=== PATIENT | female | born 1950 | race Caucasian/White ===

== ENCOUNTER 2017-03-13 10:52 | Inpatient (IN) | payer OTHER ==
[2017-03-13 12:29] VITALS: BMI 24.8
--- NOTE | 2017-03-13 13:00 | HP ---
Admission ROS [facility] - [facility] Chief Complaint: i want to go to rehab Allergies/Adverse Reactions: Allergies Allergy/AdvReac Type Severity Reaction Status Date / Time Penicillins Allergy Severe Hives Verified 03/13/17 12:47 History of Present Illness: 67 years old female with long history of heroin dependence has gerd history of gi ulcer depression and miethadone maintenance 35 mg po daily is admitted to rehab Exam Limitations: No Limitations - Ebola screening Have you traveled outside of the country in the last 21 days: No (N) Have you had contact with anyone from an Ebola affected area: No Have you been sick,other than usual withdrawal symptoms: No Do you have a fever: No - Review of Systems Constitutional: Weight Stable EENT: reports: Blurred Vision (eye glasses), Dental Problems (upper and lower denture) Respiratory: reports: No Symptoms reported Cardiac: reports: No Symptoms Reported GI: reports: Indigestion : reports: No Symptoms Reported Musculoskeletal: reports: No Symptoms Reported Integumentary: reports: No Symptoms Reported Neuro: reports: No Symptoms reported Endocrine: reports: No Symptoms Reported Hematology: reports: No Symptoms Reported Psychiatric: reports: Judgement Intact, Orientated x3, Depressed Other Systems: Reviewed and Negative Patient History - Patient Medical History Hx Anemia: No Hx Asthma: No Hx Chronic Obstructive Pulmonary Disease (COPD): No Hx Cancer: No Hx Cardiac Disorders: No Hx Congestive Heart Failure: No Hx Hypertension: No Hx Hypercholesterolemia: No Hx Pacemaker: No HX Cerebrovascular Accident: No Hx Seizures: No Hx Dementia: No Hx Diabetes: No Hx Gastrointestinal Disorders: No Hx Liver Disease: No Hx Genitourinary Disorders: No Hx Sexually Transmitted Disorders: No Hx Renal Disease (ESRD): No Hx Thyroid Disease: No Hx Human Immunodeficiency Virus (HIV): No Hx Hepatitis C: Yes Hx Depression: Yes Hx Suicide Attempt: No Hx Bipolar Disorder: No Hx Schizophrenia: No - Patient Surgical History Past Surgical History: Yes Hx Neurologic Surgery: No Hx Cataract Extraction: No Hx Cardiac Surgery: No Hx Lung Surgery: No Hx Breast Surgery: No Hx Breast Biopsy: No Hx Abdominal Surgery: Yes (gastric bypass 1991) Hx Appendectomy: No Hx Cholecystectomy: No Hx Genitourinary Surgery: No Hx Section: No Hx Orthopedic Surgery: Yes (right [id number]) Hx Hysterectomy: No Other Surgical History: carpal tunner both wrists 2001 Anesthesia Reaction: No - PPD History Previous Implant?: Yes Documented Results: Negative w/o proof Implanted On Prior R Admission?: No PPD to be Administered?: Yes - Reproductive History Patient is a Female of Child Bearing Age (11 -55 yrs old): No Last Menstrual Period: 03/13/01 Patient : No - Smoking Cessation Smoking history: Never smoked Have you smoked in the past 12 months: No Hx Chewing Tobacco Use: No Initiated information on smoking cessation: No - Substance & Tx. History Hx Alcohol Use: No Hx Substance Use: Yes Substance Use Type: Heroin Hx Substance Use Treatment: Yes ([facility]) - Substances Abused Heroin Route: Inhalation Frequency: Daily Amount used: 5 bags Age of first use: 19 Date of Last Use: 03/01/17 Family Disease History - Family Disease History Family Disease History: CA: Mother (), Respiratory: Father (), Brother, Other: Father, Mother Admission Physical Exam [facility] - Vital Signs Vital Signs: Vital Signs - 24 hr 03/13/17 12:26 Temperature 97.1 F L Pulse Rate 56 L Respiratory 20 Rate Blood Pressure 160/79 - Physical General Appearance: Yes: No Apparent Distress, Appropriately Dressed, Thin HEENTM: Yes: Hearing grossly Normal, Normal ENT Inspection, Normocephalic, Normal Voice Respiratory: Yes: Chest Non-Tender, Lungs Clear, Normal Breath Sounds, No Respiratory Distress, No Accessory Muscle Use Neck: Yes: Supple, Trachea in good position Breast: Yes: Breasts Symetrical Cardiology: Yes: Regular Rhythm, S1, S2, Bradycardia Abdominal: Yes: Normal Bowel Sounds, Non Tender, Soft, Surgical Scar Genitourinary: Yes: Within Normal Limits Back: Yes: Normal Inspection Musculoskeletal: Yes: full range of Motion, Gait Steady Extremities: Yes: Normal Inspection, Normal Range of Motion, Non-Tender Neurological: Yes: Fully Oriented, Alert, Motor Strength 5/5, Normal Response, Depressed Affect Integumentary: Yes: Warm Lymphatic: Yes: Within Normal Limits - Diagnostic (1) Uncomplicated opioid dependence Current Visit: Yes Status: Acute (2) Methadone maintenance therapy patient Current Visit: Yes Status: Chronic Comment: 35 mg verification pending (3) GERD (gastroesophageal reflux disease) Current Visit: Yes Status: Chronic Qualifiers: Esophagitis presence: without esophagitis Qualified Code(s): K21.9 - Gastro -esophageal reflux disease without esophagitis (4) History of gastrointestinal ulcer Current Visit: Yes Status: Resolved (5) Hepatitis C Current Visit: Yes Status: Resolved Qualifiers: Viral hepatitis chronicity: unspecified Hepatic coma status: without hepatic coma Qualified Code(s): B19.20 - Unspecified viral hepatitis C without hepatic coma (6) Depression (emotion) Current Visit: Yes Status: Suspected Qualifiers: Depression Type: dysthymia Qualified Code(s): F34.1 - Dysthymic disorder Cleared for Admission [facility] - Detox or Rehab [facility] Level of Care: Observation Bed Detox Regimen/Protocol: Not Applicable Claeared for Rehab Admission: Yes [facility] Breath Alcohol Content Breath Alcohol Content: 0 Urine Pregancy Test - Result Urine Test Results: Negative- NO Line Present Urine Drug Screen - Results Drug Screen Negative: No Urine Drug Screen Results: MTD-Methadone Inpatient Rehab Admission - Initial Determination Are CD services needed?: Yes Free of communicable disease: Yes Not in need of hospitalization: Yes - Rehab Admission Criteria Previous failed treatment: Yes Poor recovery environment: Yes Comorbidities: Yes Lacks judgement: No Patient is meeting Inpatient Rehab admission criteria:: Yes
[2017-03-13] MEDS ORDERED: MAG HYDROX/AL HYDROX/SIMETH 30 ML UNIT-DOSE CUP PO PRN (13:08)
[2017-03-13] MEDS ORDERED: MENTHOL/PHENOL 1 EACH UD MM PRN (13:08)
[2017-03-13] MEDS ORDERED: MAGNESIUM CITRATE 300 ML BOTTLE PO PRN (13:08)
[2017-03-13] MEDS ORDERED: LOPERAMIDE HCL 2 MG CAPSULE PO PRN (13:08)
[2017-03-13] MEDS ORDERED: P-EPHED 60MG/TRIPROLIDI 2.5MG TABLET PO PRN (13:08)
[2017-03-13] MEDS ORDERED: guaiFENesin/D-METHORPHAN HB 10 ML UNIT-DOSE CUPS PO PRN (13:08)
[2017-03-13] MEDS ORDERED: METHOCARBAMOL 500 MG TABLET PO PRN (13:14)
[2017-03-13] MEDS ORDERED: NAPROXEN 500 MG TABLET (FP) PO PRN (13:15)
--- NOTE | 2017-03-13 15:51 | HP ---
Psychiatrist Admission - Data Date of interview: 03/13/17 Admission source: Court order Identifying data: This is the first admission to [address] [place] [address] rehabilitation [facility] for this 67 yars old female cassy adair 2 grown children,resides with ,supported by [employer]. Medical History: Significant for Hep C,H/O gastric bypass surgery. Psychiatric History: Patient was seen by psychiatrist couple of years ago at the [facility] to address her drug issues,depressed mood, anxiety episodes,mostly related to her heroin use and consequences of her drug habbits.She was placed on Paxil 10 mg po daily.No current psychiatric follow up.Patient obtains Paxil from her Family Physical/Sexual Abuse/Trauma History: denies Vital Signs: Vital Signs - 24 hr 03/13/17 12:26 Temperature 97.1 F L Pulse Rate 56 L Respiratory 20 Rate Blood Pressure 160/79 Allergies/Adverse Reactions: Allergies Allergy/AdvReac Type Severity Reaction Status Date / Time Penicillins Allergy Severe Hives Verified 03/13/17 12:47 Date of last physical exam: 03/13/17 Concur with the findings of this exam: Yes - Substance Abuse/Tx History Hx Alcohol Use: Yes (socially) Hx Substance Use: Yes (reports sniffing heroin since 19 yo ,5 bags daily) Substance Use Type: Heroin Hx Substance Use Treatment: Yes Mental Status Exam - Mental Status Exam Alert and Oriented to: Time, Place, Person Cognitive Function: Grossly Intact Patient Appearance: Well Groomed Mood: Anxious Affect: Labile Patient Behavior: Cooperative Speech Pattern: Clear Voice Loudness: Normal Thought Process: Goal Oriented Thought Disorder: Not Present Hallucinations: Denies Suicidal Ideation: Denies Homicidal Ideation: Denies Insight/Judgement: Fair Sleep: Fair Appetite: Fair Muscle strength/Tone: Normal Gait/Station: Normal Psychiatric Findings - Problem List ([place] 1, 2,3) (1) Gastric bypass status for obesity Current Visit: Yes Status: Chronic (2) GERD (gastroesophageal reflux disease) Current Visit: Yes Status: Chronic Qualifiers: Esophagitis presence: without esophagitis Qualified Code(s): K21.9 - Gastro -esophageal reflux disease without esophagitis (3) Methadone maintenance therapy patient Current Visit: Yes Status: Chronic Comment: 35 mg verification pending (4) Hepatitis C Current Visit: Yes Status: Chronic Qualifiers: Viral hepatitis chronicity: unspecified Hepatic coma status: without hepatic coma Qualified Code(s): B19.20 - Unspecified viral hepatitis C without hepatic coma (5) History of gastrointestinal ulcer Current Visit: Yes Status: Resolved (6) Opioid dependence Current Visit: Yes Status: Chronic (7) Substance induced mood disorder Current Visit: Yes Status: Chronic
[2017-03-13 17:14] LABS: HEMATOCRIT 35.8 % (32.4-45.2); HEMOGLOBIN 11.1 GM/dL (10.7-15.3); MCH 24.5 pg (25.7-33.7); MEAN CELL VOLUME 79.1 fl (80-96); MEAN PLT VOLUME 10.7 fl (7.5-11.1); PLATELET COUNT 227 K/MM3 (134-434); RBC 4.53 M/mm3 (3.60-5.2); RDW 17.4 % (11.6-15.6); WHITE BLOOD COUNT 6.7 K/mm3 (4.0-10.0)
[2017-03-13 17:53] LABS: ALBUMIN 3.7 g/dl (3.4-5.0); ANION GAP 4 (8-16); BLOOD UREA NITROGEN 12 mg/dL (7-18); CALCIUM 8.8 mg/dL (8.5-10.1); CHLORIDE 101 mmol/L (98-107); CO2 34 mmol/L (21-32); CREATININE 0.9 mg/dL (0.55-1.02); GLUCOSE,RANDOM 95 mg/dL (74-106); POTASSIUM 4.3 mmol/L (3.5-5.1); SGOT/AST 17 U/L (15-37); SGPT/ALT 14 U/L (12-78); SODIUM 139 mmol/L (136-145)
[2017-03-13 17:55] LABS: ALK PHOS 109 U/L (45-117); BILIRUBIN,TOTAL 0.7 mg/dL (0.2-1.0); TOT PROT 7.4 g/dl (6.4-8.2)
[2017-03-13] MEDS: MAGNESIUM HYDROX 2400MG/30ML ORAL SUSPENSION 30 ML CUP PO PRN (18:55)
[2017-03-13] MEDS: THIAMINE HCL 100 MG TABLET (FP) PO SCH (21:24)
[2017-03-13] MEDS: RANITIDINE HCL 150 MG TABLET (FP) PO SCH (21:25)
[2017-03-13] MEDS: PARoxetine HCL 10 MG TABLET (FP) PO SCH (21:25)
[2017-03-13 23:42] LABS: URINE APPEARANCE CLEAR; URINE BILIRUBIN NEGATIVE (NEGATIVE); URINE BLOOD 1+ (NEGATIVE); URINE COLOR YELLOW; URINE GLUCOSE (UA) NEGATIVE (NEGATIVE); URINE KETONE NEGATIVE (NEGATIVE); URINE LEUK ESTERASE TRACE (NEGATIVE); URINE NITRITE NEGATIVE (NEGATIVE); URINE PROTEIN NEGATIVE (NEGATIVE); URINE UROBILINOGEN NEGATIVE mg/dL (0.2-1.0)
[2017-03-13 23:46] LABS: EPI CELLS FEW /HPF (FEW); URINE BACTERIA RARE /hpf (NONE SEEN); URINE MUCUS RARE
[2017-03-14] MEDS: RANITIDINE HCL 150 MG TABLET (FP) PO SCH ×2 (10:01→21:28)
[2017-03-14] MEDS: PRENATAL VITAMINS W/ FOLIC ACID TABLET (FP) PO SCH (10:01)
[2017-03-14] MEDS: MAGNESIUM HYDROX 2400MG/30ML ORAL SUSPENSION 30 ML CUP PO PRN (10:02)
[2017-03-14] MEDS ORDERED: METHADONE HCL 40 MG DISPERSABLE TABLET PO SCH (10:45)
[2017-03-14] MEDS ORDERED: METHADONE HCL 10 MG TABLET ONE (10:58)
[2017-03-14] MEDS ORDERED: METHADONE HCL 5 MG TABLET ONE (10:59)
[2017-03-14] MEDS: METHADONE 30 MG, METHADONE 5 MG PO SCH (11:00)
--- NOTE | 2017-03-14 11:05 | EKG ---
Test Reason : Blood Pressure : / mmHG Vent. Rate : 055 BPM Atrial Rate : 055 BPM P-R Int : 118 ms QRS Dur : 082 ms QT Int : 406 ms P-R-T Axes : 058 050 048 degrees QTc Int : 388 ms SINUS BRADYCARDIA OTHERWISE NORMAL ECG NO PREVIOUS ECGS AVAILABLE Confirmed by LULY WATTS MD ([id number]) on 03/14/2017 11:05:21 AM Referred By: Confirmed By:LULY WATTS MD
--- NOTE | 2017-03-14 12:43 | PN ---
[facility] Progress Note (SOAP) Subjective: Mid-epigastric pain and constipation. Pain has improved since yesterday. Difficulty moving bowels, attributes constipation to Methadone, Last BM today with pain improvement Objective: 03/14/17 12:45 AOx3, ambulating, no distress, no respiratory abnormality, BS x 4, non-tender , no distension 03/14/17 17:12 Assessment: 03/14/17 12:46 Constipation GERD 03/14/17 17:43 Plan: Increase fluids Patient advise to not skip meals Increase fiber Colace 100mg BID Continue Ranitidine
[2017-03-14] MEDS: PARoxetine HCL 10 MG TABLET (FP) PO SCH (21:28)
[2017-03-14] MEDS: THIAMINE HCL 100 MG TABLET (FP) PO SCH (21:28)
[2017-03-15] MEDS ORDERED: METHADONE HCL 5 MG TABLET ONE (03:59)
[2017-03-15] MEDS ORDERED: METHADONE HCL 10 MG TABLET ONE (03:59)
[2017-03-15] MEDS: METHADONE 30 MG, METHADONE 5 MG PO SCH (06:04)
[2017-03-15] MEDS: PRENATAL VITAMINS W/ FOLIC ACID TABLET (FP) PO SCH (09:50)
[2017-03-15] MEDS: RANITIDINE HCL 150 MG TABLET (FP) PO SCH ×2 (09:50→21:23)
[2017-03-15] MEDS: PARoxetine HCL 10 MG TABLET (FP) PO SCH (21:23)
[2017-03-15] MEDS: THIAMINE HCL 100 MG TABLET (FP) PO SCH (21:23)
[2017-03-16] MEDS ORDERED: METHADONE HCL 10 MG TABLET ONE (04:02)
[2017-03-16] MEDS ORDERED: METHADONE HCL 5 MG TABLET ONE (04:03)
[2017-03-16] MEDS: METHADONE 30 MG, METHADONE 5 MG PO SCH (05:52)
[2017-03-16] MEDS: RANITIDINE HCL 150 MG TABLET (FP) PO SCH ×2 (09:56→21:34)
[2017-03-16] MEDS: PRENATAL VITAMINS W/ FOLIC ACID TABLET (FP) PO SCH (09:56)
[2017-03-16] MEDS: MAGNESIUM HYDROX 2400MG/30ML ORAL SUSPENSION 30 ML CUP PO PRN (09:57)
[2017-03-16] MEDS: DOCUSATE SODIUM 100 MG CAPSULE (FP) PO PRN (21:34)
[2017-03-16] MEDS: THIAMINE HCL 100 MG TABLET (FP) PO SCH (21:34)
[2017-03-16] MEDS: PARoxetine HCL 10 MG TABLET (FP) PO SCH (21:35)
[2017-03-17] MEDS ORDERED: METHADONE HCL 10 MG TABLET ONE (04:04)
[2017-03-17] MEDS ORDERED: METHADONE HCL 5 MG TABLET ONE (04:04)
[2017-03-17] MEDS: METHADONE 30 MG, METHADONE 5 MG PO SCH (06:06)
[2017-03-17] MEDS: PRENATAL VITAMINS W/ FOLIC ACID TABLET (FP) PO SCH (09:56)
[2017-03-17] MEDS: RANITIDINE HCL 150 MG TABLET (FP) PO SCH ×2 (09:56→21:15)
[2017-03-17] MEDS: DOCUSATE SODIUM 100 MG CAPSULE (FP) PO PRN ×2 (09:57→21:16)
[2017-03-17] MEDS: PARoxetine HCL 10 MG TABLET (FP) PO SCH (21:15)
[2017-03-17] MEDS: THIAMINE HCL 100 MG TABLET (FP) PO SCH (21:15)
[2017-03-18] MEDS ORDERED: METHADONE HCL 10 MG TABLET ONE (03:22)
[2017-03-18] MEDS ORDERED: METHADONE HCL 5 MG TABLET ONE (03:22)
[2017-03-18] MEDS: METHADONE 30 MG, METHADONE 5 MG PO SCH (06:46)
[2017-03-18] MEDS: RANITIDINE HCL 150 MG TABLET (FP) PO SCH ×2 (09:44→21:42)
[2017-03-18] MEDS: PRENATAL VITAMINS W/ FOLIC ACID TABLET (FP) PO SCH (09:44)
[2017-03-18] MEDS: DOCUSATE SODIUM 100 MG CAPSULE (FP) PO PRN ×2 (09:45→21:42)
[2017-03-18] MEDS ORDERED: COLLOIDAL OATMEAL 1 BAR EACH TP PRN (16:09)
--- NOTE | 2017-03-18 16:10 | PN ---
[facility] Progress Note Note: p/t c/o dry skin and itching to legs; aveeno soap and eucerin oint ordered.
[2017-03-18] MEDS: THIAMINE HCL 100 MG TABLET (FP) PO SCH (21:42)
[2017-03-18] MEDS: MINERAL OIL/PETROLAT/WATER TOPICAL CREAM 454 GM JAR TP PRN (21:42)
[2017-03-18] MEDS: PARoxetine HCL 10 MG TABLET (FP) PO SCH (21:44)
[2017-03-19] MEDS ORDERED: METHADONE HCL 5 MG TABLET ONE (03:12)
[2017-03-19] MEDS ORDERED: METHADONE HCL 10 MG TABLET ONE (03:12)
[2017-03-19] MEDS: METHADONE 30 MG, METHADONE 5 MG PO SCH (06:23)
[2017-03-19] MEDS: RANITIDINE HCL 150 MG TABLET (FP) PO SCH ×2 (09:58→21:33)
[2017-03-19] MEDS: PRENATAL VITAMINS W/ FOLIC ACID TABLET (FP) PO SCH (09:58)
[2017-03-19] MEDS: DOCUSATE SODIUM 100 MG CAPSULE (FP) PO PRN ×2 (09:59→21:35)
[2017-03-19] MEDS: THIAMINE HCL 100 MG TABLET (FP) PO SCH (21:33)
[2017-03-19] MEDS: PARoxetine HCL 10 MG TABLET (FP) PO SCH (21:33)
[2017-03-19] MEDS: MINERAL OIL/PETROLAT/WATER TOPICAL CREAM 454 GM JAR TP PRN (21:35)
[2017-03-20] MEDS ORDERED: METHADONE HCL 10 MG TABLET ONE (04:05)
[2017-03-20] MEDS ORDERED: METHADONE HCL 5 MG TABLET ONE (04:05)
[2017-03-20] MEDS: METHADONE 30 MG, METHADONE 5 MG PO SCH (06:11)
[2017-03-20] MEDS: PRENATAL VITAMINS W/ FOLIC ACID TABLET (FP) PO SCH (09:38)
[2017-03-20] MEDS: RANITIDINE HCL 150 MG TABLET (FP) PO SCH ×2 (09:38→21:31)
[2017-03-20] MEDS: DOCUSATE SODIUM 100 MG CAPSULE (FP) PO PRN ×2 (09:39→21:30)
[2017-03-20] MEDS: THIAMINE HCL 100 MG TABLET (FP) PO SCH (21:29)
[2017-03-20] MEDS: PARoxetine HCL 10 MG TABLET (FP) PO SCH (21:31)
[2017-03-20] MEDS: MINERAL OIL/PETROLAT/WATER TOPICAL CREAM 454 GM JAR TP PRN (21:31)
[2017-03-21] MEDS ORDERED: METHADONE HCL 5 MG TABLET ONE (04:13)
[2017-03-21] MEDS ORDERED: METHADONE HCL 10 MG TABLET ONE (04:13)
[2017-03-21] MEDS: METHADONE 30 MG, METHADONE 5 MG PO SCH (06:28)
[2017-03-21] MEDS: RANITIDINE HCL 150 MG TABLET (FP) PO SCH ×2 (09:47→21:17)
[2017-03-21] MEDS: PRENATAL VITAMINS W/ FOLIC ACID TABLET (FP) PO SCH (09:47)
[2017-03-21] MEDS: DOCUSATE SODIUM 100 MG CAPSULE (FP) PO PRN ×2 (09:48→21:18)
[2017-03-21] MEDS: MINERAL OIL/PETROLAT/WATER TOPICAL CREAM 454 GM JAR TP PRN (09:50)
[2017-03-21] MEDS: PARoxetine HCL 10 MG TABLET (FP) PO SCH (21:17)
[2017-03-21] MEDS: THIAMINE HCL 100 MG TABLET (FP) PO SCH (21:17)
[2017-03-22] MEDS ORDERED: METHADONE HCL 5 MG TABLET ONE (04:06)
[2017-03-22] MEDS ORDERED: METHADONE HCL 10 MG TABLET ONE (04:06)
[2017-03-22] MEDS: METHADONE 30 MG, METHADONE 5 MG PO SCH (06:14)
[2017-03-22] MEDS: DOCUSATE SODIUM 100 MG CAPSULE (FP) PO PRN ×2 (10:07→21:23)
[2017-03-22] MEDS: PRENATAL VITAMINS W/ FOLIC ACID TABLET (FP) PO SCH (10:07)
[2017-03-22] MEDS: RANITIDINE HCL 150 MG TABLET (FP) PO SCH ×2 (10:07→21:22)
[2017-03-22] MEDS ORDERED: PT OWN MED DRAWER 7, Y5N ONE (10:08)
[2017-03-22] MEDS: MINERAL OIL/PETROLAT/WATER TOPICAL CREAM 454 GM JAR TP PRN (10:08)
[2017-03-22] MEDS: PARoxetine HCL 10 MG TABLET (FP) PO SCH (21:22)
[2017-03-22] MEDS: THIAMINE HCL 100 MG TABLET (FP) PO SCH (21:22)
[2017-03-23] MEDS ORDERED: METHADONE HCL 10 MG TABLET ONE (03:53)
[2017-03-23] MEDS ORDERED: METHADONE HCL 5 MG TABLET ONE (03:54)
[2017-03-23] MEDS: METHADONE 30 MG, METHADONE 5 MG PO SCH (06:35)
[2017-03-23] MEDS: PRENATAL VITAMINS W/ FOLIC ACID TABLET (FP) PO SCH (09:49)
[2017-03-23] MEDS: RANITIDINE HCL 150 MG TABLET (FP) PO SCH ×2 (09:49→21:51)
[2017-03-23] MEDS: MINERAL OIL/PETROLAT/WATER TOPICAL CREAM 454 GM JAR TP PRN (09:50)
[2017-03-23] MEDS: DOCUSATE SODIUM 100 MG CAPSULE (FP) PO PRN ×2 (09:51→21:50)
[2017-03-23] MEDS ORDERED: PT OWN MED DRAWER 7, Y5N ONE (14:33)
[2017-03-23] MEDS: PARoxetine HCL 10 MG TABLET (FP) PO SCH (21:50)
[2017-03-23] MEDS: THIAMINE HCL 100 MG TABLET (FP) PO SCH (21:50)
[2017-03-24] MEDS ORDERED: METHADONE HCL 5 MG TABLET ONE (05:27)
[2017-03-24] MEDS ORDERED: METHADONE HCL 10 MG TABLET ONE (05:27)
[2017-03-24] MEDS: METHADONE 30 MG, METHADONE 5 MG PO SCH (06:30)
[2017-03-24] MEDS: RANITIDINE HCL 150 MG TABLET (FP) PO SCH ×2 (09:41→21:28)
[2017-03-24] MEDS: PRENATAL VITAMINS W/ FOLIC ACID TABLET (FP) PO SCH (09:41)
[2017-03-24] MEDS ORDERED: PT OWN MED DRAWER 7, Y5N ONE ×2 (09:42→10:42)
[2017-03-24] MEDS: DOCUSATE SODIUM 100 MG CAPSULE (FP) PO PRN ×2 (09:43→21:30)
[2017-03-24] MEDS: THIAMINE HCL 100 MG TABLET (FP) PO SCH (21:28)
[2017-03-24] MEDS: PARoxetine HCL 10 MG TABLET (FP) PO SCH (21:28)
[2017-03-25] MEDS ORDERED: METHADONE HCL 5 MG TABLET ONE (03:50)
[2017-03-25] MEDS ORDERED: METHADONE HCL 10 MG TABLET ONE (03:50)
[2017-03-25] MEDS: METHADONE 30 MG, METHADONE 5 MG PO SCH (06:03)
[2017-03-25] MEDS: PRENATAL VITAMINS W/ FOLIC ACID TABLET (FP) PO SCH (09:57)
[2017-03-25] MEDS: DOCUSATE SODIUM 100 MG CAPSULE (FP) PO PRN ×2 (09:57→21:19)
[2017-03-25] MEDS: RANITIDINE HCL 150 MG TABLET (FP) PO SCH ×2 (09:57→21:19)
[2017-03-25] MEDS ORDERED: PT OWN MED DRAWER 7, Y5N ONE ×2 (10:00→19:41)
[2017-03-25] MEDS: MINERAL OIL/PETROLAT/WATER TOPICAL CREAM 454 GM JAR TP PRN (10:00)
--- NOTE | 2017-03-25 14:43 | PN ---
[facility] Progress Note Note: Patient reports pruritic rash on the left forearm. Patient AOx3, in no aparent distress, ambulating. Mild erythema present on the left forearm. No signs or symptoms of infection present. Plan: Increase fluids Hydrocortisone cream BID, PRN to the affected area continue to monitor
[2017-03-25] MEDS: HYDROCORTISONE 2.5% TOPICAL CREAM 30 GM TUBE TP SCH (21:18)
[2017-03-25] MEDS: PARoxetine HCL 10 MG TABLET (FP) PO SCH (21:19)
[2017-03-25] MEDS: THIAMINE HCL 100 MG TABLET (FP) PO SCH (21:19)
[2017-03-26] MEDS ORDERED: METHADONE HCL 10 MG TABLET ONE (04:04)
[2017-03-26] MEDS ORDERED: METHADONE HCL 5 MG TABLET ONE (04:05)
[2017-03-26] MEDS: METHADONE 30 MG, METHADONE 5 MG PO SCH (05:49)
[2017-03-26] MEDS: PRENATAL VITAMINS W/ FOLIC ACID TABLET (FP) PO SCH (09:52)
[2017-03-26] MEDS: RANITIDINE HCL 150 MG TABLET (FP) PO SCH ×2 (09:52→21:24)
[2017-03-26] MEDS ORDERED: PT OWN MED DRAWER 7, Y5N ONE (09:53)
[2017-03-26] MEDS: DOCUSATE SODIUM 100 MG CAPSULE (FP) PO PRN ×2 (09:53→21:24)
[2017-03-26] MEDS: MINERAL OIL/PETROLAT/WATER TOPICAL CREAM 454 GM JAR TP PRN (09:54)
[2017-03-26] MEDS: HYDROCORTISONE 2.5% TOPICAL CREAM 30 GM TUBE TP SCH ×2 (09:54→21:25)
[2017-03-26] MEDS: THIAMINE HCL 100 MG TABLET (FP) PO SCH (21:23)
[2017-03-26] MEDS: PARoxetine HCL 10 MG TABLET (FP) PO SCH (21:24)
[2017-03-27] MEDS ORDERED: METHADONE HCL 5 MG TABLET ONE (04:35)
[2017-03-27] MEDS ORDERED: METHADONE HCL 10 MG TABLET ONE (04:35)
[2017-03-27] MEDS: METHADONE 30 MG, METHADONE 5 MG PO SCH (06:27)
[2017-03-27] MEDS: PRENATAL VITAMINS W/ FOLIC ACID TABLET (FP) PO SCH (09:41)
[2017-03-27] MEDS: RANITIDINE HCL 150 MG TABLET (FP) PO SCH ×2 (09:41→21:17)
[2017-03-27] MEDS: DOCUSATE SODIUM 100 MG CAPSULE (FP) PO PRN ×2 (09:41→21:17)
[2017-03-27] MEDS: HYDROCORTISONE 2.5% TOPICAL CREAM 30 GM TUBE TP SCH ×2 (09:43→21:17)
[2017-03-27] MEDS: MINERAL OIL/PETROLAT/WATER TOPICAL CREAM 454 GM JAR TP PRN (09:43)
[2017-03-27] MEDS ORDERED: PT OWN MED DRAWER 7, Y5N ONE (09:44)
[2017-03-27] MEDS: PARoxetine HCL 10 MG TABLET (FP) PO SCH (21:17)
[2017-03-27] MEDS: THIAMINE HCL 100 MG TABLET (FP) PO SCH (21:17)
[2017-03-28] MEDS ORDERED: METHADONE HCL 10 MG TABLET ONE (04:38)
[2017-03-28] MEDS ORDERED: METHADONE HCL 5 MG TABLET ONE (04:39)
[2017-03-28] MEDS: METHADONE 30 MG, METHADONE 5 MG PO SCH (06:20)
[2017-03-28] MEDS: DOCUSATE SODIUM 100 MG CAPSULE (FP) PO PRN ×2 (09:47→21:52)
[2017-03-28] MEDS: PRENATAL VITAMINS W/ FOLIC ACID TABLET (FP) PO SCH (09:47)
[2017-03-28] MEDS: RANITIDINE HCL 150 MG TABLET (FP) PO SCH ×2 (09:47→21:51)
[2017-03-28] MEDS: HYDROCORTISONE 2.5% TOPICAL CREAM 30 GM TUBE TP SCH ×2 (09:48→21:53)
[2017-03-28] MEDS: MINERAL OIL/PETROLAT/WATER TOPICAL CREAM 454 GM JAR TP PRN (09:48)
[2017-03-28] MEDS: PARoxetine HCL 10 MG TABLET (FP) PO SCH (21:51)
[2017-03-28] MEDS: THIAMINE HCL 100 MG TABLET (FP) PO SCH (21:51)
[2017-03-29] MEDS ORDERED: METHADONE HCL 5 MG TABLET ONE (04:12)
[2017-03-29] MEDS ORDERED: METHADONE HCL 10 MG TABLET ONE (04:12)
[2017-03-29] MEDS: METHADONE 30 MG, METHADONE 5 MG PO SCH (05:50)
[2017-03-29] MEDS ORDERED: PT OWN MED DRAWER 7, Y5N ONE ×2 (09:04→10:13)
[2017-03-29] MEDS: HYDROCORTISONE 2.5% TOPICAL CREAM 30 GM TUBE TP SCH ×2 (10:10→21:32)
[2017-03-29] MEDS: DOCUSATE SODIUM 100 MG CAPSULE (FP) PO PRN ×2 (10:11→21:31)
[2017-03-29] MEDS: RANITIDINE HCL 150 MG TABLET (FP) PO SCH ×2 (10:12→21:31)
[2017-03-29] MEDS: PRENATAL VITAMINS W/ FOLIC ACID TABLET (FP) PO SCH (10:12)
[2017-03-29] MEDS: THIAMINE HCL 100 MG TABLET (FP) PO SCH (21:31)
[2017-03-29] MEDS: PARoxetine HCL 10 MG TABLET (FP) PO SCH (21:31)
[2017-03-30] MEDS ORDERED: METHADONE HCL 10 MG TABLET ONE (04:12)
[2017-03-30] MEDS ORDERED: METHADONE HCL 5 MG TABLET ONE (04:13)
[2017-03-30] MEDS: METHADONE 30 MG, METHADONE 5 MG PO SCH (06:04)
[2017-03-30] MEDS: DOCUSATE SODIUM 100 MG CAPSULE (FP) PO PRN ×2 (09:47→21:15)
[2017-03-30] MEDS: RANITIDINE HCL 150 MG TABLET (FP) PO SCH ×2 (09:47→21:15)
[2017-03-30] MEDS: HYDROCORTISONE 2.5% TOPICAL CREAM 30 GM TUBE TP SCH ×2 (09:47→21:42)
[2017-03-30] MEDS: MINERAL OIL/PETROLAT/WATER TOPICAL CREAM 454 GM JAR TP PRN (09:47)
[2017-03-30] MEDS: PRENATAL VITAMINS W/ FOLIC ACID TABLET (FP) PO SCH (09:47)
[2017-03-30] MEDS: THIAMINE HCL 100 MG TABLET (FP) PO SCH (21:15)
[2017-03-30] MEDS: PARoxetine HCL 10 MG TABLET (FP) PO SCH (21:15)
[2017-03-31] MEDS ORDERED: METHADONE HCL 10 MG TABLET ONE (04:13)
[2017-03-31] MEDS ORDERED: METHADONE HCL 5 MG TABLET ONE (04:13)
[2017-03-31] MEDS: METHADONE 30 MG, METHADONE 5 MG PO SCH (05:56)
[2017-03-31] MEDS: DOCUSATE SODIUM 100 MG CAPSULE (FP) PO PRN ×2 (09:47→21:38)
[2017-03-31] MEDS: RANITIDINE HCL 150 MG TABLET (FP) PO SCH ×2 (09:48→21:38)
[2017-03-31] MEDS: PRENATAL VITAMINS W/ FOLIC ACID TABLET (FP) PO SCH (09:48)
[2017-03-31] MEDS: MINERAL OIL/PETROLAT/WATER TOPICAL CREAM 454 GM JAR TP PRN (09:49)
[2017-03-31] MEDS: HYDROCORTISONE 2.5% TOPICAL CREAM 30 GM TUBE TP SCH ×2 (09:49→22:56)
[2017-03-31] MEDS ORDERED: PT OWN MED DRAWER 7, Y5N ONE (19:12)
[2017-03-31] MEDS: THIAMINE HCL 100 MG TABLET (FP) PO SCH (21:38)
[2017-03-31] MEDS: PARoxetine HCL 10 MG TABLET (FP) PO SCH (21:38)
[2017-04-01] MEDS ORDERED: METHADONE HCL 10 MG TABLET ONE (04:18)
[2017-04-01] MEDS ORDERED: METHADONE HCL 5 MG TABLET ONE (04:18)
[2017-04-01] MEDS: METHADONE 30 MG, METHADONE 5 MG PO SCH (05:47)
[2017-04-01] MEDS: RANITIDINE HCL 150 MG TABLET (FP) PO SCH ×2 (09:57→21:09)
[2017-04-01] MEDS: PRENATAL VITAMINS W/ FOLIC ACID TABLET (FP) PO SCH (09:57)
[2017-04-01] MEDS: DOCUSATE SODIUM 100 MG CAPSULE (FP) PO PRN ×2 (09:57→21:09)
[2017-04-01] MEDS: HYDROCORTISONE 2.5% TOPICAL CREAM 30 GM TUBE TP SCH ×2 (09:58→21:09)
[2017-04-01] MEDS: MINERAL OIL/PETROLAT/WATER TOPICAL CREAM 454 GM JAR TP PRN (09:58)
[2017-04-01] MEDS ORDERED: PT OWN MED DRAWER 7, Y5N ONE (09:59)
[2017-04-01] MEDS: PARoxetine HCL 10 MG TABLET (FP) PO SCH (21:09)
[2017-04-01] MEDS: THIAMINE HCL 100 MG TABLET (FP) PO SCH (21:09)
[2017-04-02] MEDS ORDERED: METHADONE HCL 10 MG TABLET ONE (04:23)
[2017-04-02] MEDS ORDERED: METHADONE HCL 5 MG TABLET ONE (04:23)
[2017-04-02] MEDS: METHADONE 30 MG, METHADONE 5 MG PO SCH (06:11)
[2017-04-02] MEDS: PRENATAL VITAMINS W/ FOLIC ACID TABLET (FP) PO SCH (09:48)
[2017-04-02] MEDS: HYDROCORTISONE 2.5% TOPICAL CREAM 30 GM TUBE TP SCH ×2 (09:48→21:10)
[2017-04-02] MEDS: RANITIDINE HCL 150 MG TABLET (FP) PO SCH ×2 (09:48→21:10)
[2017-04-02] MEDS: MINERAL OIL/PETROLAT/WATER TOPICAL CREAM 454 GM JAR TP PRN (09:50)
[2017-04-02] MEDS: DOCUSATE SODIUM 100 MG CAPSULE (FP) PO PRN ×2 (09:50→21:11)
[2017-04-02] MEDS ORDERED: PT OWN MED DRAWER 7, Y5N ONE (09:50)
[2017-04-02] MEDS: PARoxetine HCL 10 MG TABLET (FP) PO SCH (21:10)
[2017-04-02] MEDS: THIAMINE HCL 100 MG TABLET (FP) PO SCH (21:10)
[2017-04-03] MEDS ORDERED: METHADONE HCL 10 MG TABLET ONE (04:05)
[2017-04-03] MEDS ORDERED: METHADONE HCL 5 MG TABLET ONE (04:05)
[2017-04-03] MEDS: METHADONE 30 MG, METHADONE 5 MG PO SCH (06:10)
[2017-04-03] MEDS: RANITIDINE HCL 150 MG TABLET (FP) PO SCH ×2 (09:49→21:20)
[2017-04-03] MEDS: DOCUSATE SODIUM 100 MG CAPSULE (FP) PO PRN ×2 (09:49→21:19)
[2017-04-03] MEDS: PRENATAL VITAMINS W/ FOLIC ACID TABLET (FP) PO SCH (09:49)
[2017-04-03] MEDS ORDERED: PT OWN MED DRAWER 7, Y5N ONE (09:51)
[2017-04-03] MEDS: MINERAL OIL/PETROLAT/WATER TOPICAL CREAM 454 GM JAR TP PRN (09:51)
[2017-04-03] MEDS: HYDROCORTISONE 2.5% TOPICAL CREAM 30 GM TUBE TP SCH ×2 (10:26→21:18)
[2017-04-03] MEDS: THIAMINE HCL 100 MG TABLET (FP) PO SCH (21:19)
[2017-04-03] MEDS: PARoxetine HCL 10 MG TABLET (FP) PO SCH (21:19)
[2017-04-04] MEDS ORDERED: METHADONE HCL 5 MG TABLET ONE (03:54)
[2017-04-04] MEDS ORDERED: METHADONE HCL 10 MG TABLET ONE (03:54)
[2017-04-04] MEDS: METHADONE 30 MG, METHADONE 5 MG PO SCH (06:25)
[2017-04-04] MEDS: PRENATAL VITAMINS W/ FOLIC ACID TABLET (FP) PO SCH (09:43)
[2017-04-04] MEDS: RANITIDINE HCL 150 MG TABLET (FP) PO SCH ×2 (09:43→21:04)
[2017-04-04] MEDS: DOCUSATE SODIUM 100 MG CAPSULE (FP) PO PRN ×2 (09:43→21:05)
[2017-04-04] MEDS: HYDROCORTISONE 2.5% TOPICAL CREAM 30 GM TUBE TP SCH ×2 (09:44→21:04)
[2017-04-04] MEDS: MINERAL OIL/PETROLAT/WATER TOPICAL CREAM 454 GM JAR TP PRN (09:44)
[2017-04-04] MEDS ORDERED: PT OWN MED DRAWER 7, Y5N ONE (09:45)
[2017-04-04] MEDS: ACETAMINOPHEN 325 MG TABLET (FP) PO PRN (10:05)
[2017-04-04] MEDS: THIAMINE HCL 100 MG TABLET (FP) PO SCH (21:04)
[2017-04-04] MEDS: PARoxetine HCL 10 MG TABLET (FP) PO SCH (21:04)
[2017-04-05] MEDS ORDERED: METHADONE HCL 10 MG TABLET ONE (04:17)
[2017-04-05] MEDS ORDERED: METHADONE HCL 5 MG TABLET ONE (04:17)
[2017-04-05] MEDS: METHADONE 30 MG, METHADONE 5 MG PO SCH (06:11)
[2017-04-05] MEDS: DOCUSATE SODIUM 100 MG CAPSULE (FP) PO PRN ×2 (09:46→21:36)
[2017-04-05] MEDS: PRENATAL VITAMINS W/ FOLIC ACID TABLET (FP) PO SCH (09:46)
[2017-04-05] MEDS: RANITIDINE HCL 150 MG TABLET (FP) PO SCH ×2 (09:46→21:36)
[2017-04-05] MEDS: MINERAL OIL/PETROLAT/WATER TOPICAL CREAM 454 GM JAR TP PRN (09:47)
[2017-04-05] MEDS: HYDROCORTISONE 2.5% TOPICAL CREAM 30 GM TUBE TP SCH ×2 (09:48→21:36)
[2017-04-05] MEDS: ACETAMINOPHEN 325 MG TABLET (FP) PO PRN ×3 (10:31→21:37)
[2017-04-05] MEDS ORDERED: PT OWN MED DRAWER 7, Y5N ONE (15:38)
[2017-04-05] MEDS: PARoxetine HCL 10 MG TABLET (FP) PO SCH (21:36)
[2017-04-05] MEDS: THIAMINE HCL 100 MG TABLET (FP) PO SCH (21:36)
[2017-04-06] MEDS ORDERED: METHADONE HCL 5 MG TABLET ONE (03:25)
[2017-04-06] MEDS ORDERED: METHADONE HCL 10 MG TABLET ONE (03:25)
[2017-04-06] MEDS: METHADONE 30 MG, METHADONE 5 MG PO SCH (06:02)
[2017-04-06] MEDS: ACETAMINOPHEN 325 MG TABLET (FP) PO PRN (06:03)
[2017-04-06] MEDS ORDERED: PT OWN MED DRAWER 7, Y5N ONE ×3 (08:27→19:24)
[2017-04-06] MEDS: PRENATAL VITAMINS W/ FOLIC ACID TABLET (FP) PO SCH (09:43)
[2017-04-06] MEDS: RANITIDINE HCL 150 MG TABLET (FP) PO SCH ×2 (09:43→21:10)
[2017-04-06] MEDS: HYDROCORTISONE 2.5% TOPICAL CREAM 30 GM TUBE TP SCH ×2 (09:44→23:06)
[2017-04-06] MEDS: DOCUSATE SODIUM 100 MG CAPSULE (FP) PO PRN ×2 (09:45→21:10)
[2017-04-06] MEDS: MINERAL OIL/PETROLAT/WATER TOPICAL CREAM 454 GM JAR TP PRN (09:45)
[2017-04-06] MEDS: PARoxetine HCL 10 MG TABLET (FP) PO SCH (21:10)
[2017-04-06] MEDS: THIAMINE HCL 100 MG TABLET (FP) PO SCH (21:10)
[2017-04-07] MEDS ORDERED: METHADONE HCL 10 MG TABLET ONE (05:09)
[2017-04-07] MEDS ORDERED: METHADONE HCL 5 MG TABLET ONE (05:09)
[2017-04-07] MEDS: METHADONE 30 MG, METHADONE 5 MG PO SCH (06:04)
[2017-04-07] MEDS ORDERED: PT OWN MED DRAWER 7, Y5N ONE (08:23)
[2017-04-07] MEDS: PRENATAL VITAMINS W/ FOLIC ACID TABLET (FP) PO SCH (09:33)
[2017-04-07] MEDS: MINERAL OIL/PETROLAT/WATER TOPICAL CREAM 454 GM JAR TP PRN (09:33)
[2017-04-07] MEDS: RANITIDINE HCL 150 MG TABLET (FP) PO SCH ×2 (09:33→21:26)
[2017-04-07] MEDS: DOCUSATE SODIUM 100 MG CAPSULE (FP) PO PRN ×2 (09:34→21:27)
[2017-04-07] MEDS: HYDROCORTISONE 2.5% TOPICAL CREAM 30 GM TUBE TP SCH ×2 (09:34→21:26)
[2017-04-07] MEDS: PARoxetine HCL 10 MG TABLET (FP) PO SCH (21:26)
[2017-04-07] MEDS: THIAMINE HCL 100 MG TABLET (FP) PO SCH (21:26)
[2017-04-08] MEDS ORDERED: METHADONE HCL 5 MG TABLET ONE (03:03)
[2017-04-08] MEDS ORDERED: METHADONE HCL 10 MG TABLET ONE (03:03)
[2017-04-08] MEDS: METHADONE 30 MG, METHADONE 5 MG PO SCH (05:50)
[2017-04-08] MEDS: DOCUSATE SODIUM 100 MG CAPSULE (FP) PO PRN ×2 (09:48→21:15)
[2017-04-08] MEDS: PRENATAL VITAMINS W/ FOLIC ACID TABLET (FP) PO SCH (09:48)
[2017-04-08] MEDS: RANITIDINE HCL 150 MG TABLET (FP) PO SCH ×2 (09:48→21:16)
[2017-04-08] MEDS: MINERAL OIL/PETROLAT/WATER TOPICAL CREAM 454 GM JAR TP PRN (09:49)
[2017-04-08] MEDS: HYDROCORTISONE 2.5% TOPICAL CREAM 30 GM TUBE TP SCH ×2 (09:50→21:16)
--- NOTE | 2017-04-08 12:07 | PN ---
Psychiatric Progress Note Vital Signs: Vital Signs Period Temp Pulse Resp BP Sys/Wilkerson Pulse Ox Last 24 Hr 96.6 F 62 16-18 140/85 Date of Session: 04/09/17 Chief Complaint:: Discharge Note HPI: Patient addressing Opoid Dependence comorbid with Substance-Induced Mood Disorder ROS: GERD, Hep C Current Medications: Active Medications Generic Name Dose Route Start Last Admin Trade Name Freq PRN Reason Stop Dose Admin Acetaminophen 650 mg 03/13/17 13:08 04/06/17 06:03 Tylenol - PO 650 mg Q4H PRN Administration FEVER Al Hydroxide/Mg Hydroxide 30 ml 03/13/17 13:08 Mylanta Oral Suspension - PO Q6H PRN DYSPEPSIA Colloidal Oatmeal 1 applic 03/18/17 16:09 03/18/17 21:40 Aveeno Soap - TP 1 applic DAILY PRN Administration HYGEINE Docusate Sodium 100 mg 03/14/17 17:00 04/08/17 09:48 Colace - PO 100 mg BID PRN Administration CONSTIPATION Eucalyptus/Menthol/Phenol/Sorbitol 1 each 03/13/17 13:08 Cepastat Lozenge - MM Q4H PRN SORE THROAT Guaifenesin 10 ml 03/13/17 13:08 Robitussin Dm - PO Q6H PRN COUGH Hydrocortisone 1 applic 03/25/17 22:00 04/08/17 09:50 Anusol 2.5% Hc Cream - TP Not Given BID ALMA DELIA Loperamide HCl 4 mg 03/13/17 13:08 Imodium - PO Q6H PRN DIARRHEA Magnesium Citrate 300 ml 03/13/17 13:08 Citroma - PO Q48H PRN CONSTIPATION Magnesium Hydroxide 30 ml 03/13/17 13:08 03/16/17 09:57 Milk Of Magnesia - PO 30 ml DAILY PRN Administration CONSTIPATION Methadone HCl 30 mg/ Methadone 35 mg 04/03/17 06:00 04/08/17 05:50 HCl 5 mg PO 04/10/17 05:59 35 mg DAILY@0600 ALMA DELIA Administration Methocarbamol 500 mg 03/13/17 13:14 Robaxin - PO QID PRN BACK PAIN Multi-Ingredient Lotion 1 applic 03/18/17 16:08 04/08/17 09:49 Eucerin (Large Jar) - TP 1 applic BID PRN Administration DRY SKIN Naproxen 500 mg 03/13/17 13:15 Naprosyn - PO BID PRN PAIN LEVEL 4 - 6 Paroxetine HCl 10 mg 03/13/17 22:00 04/07/17 21:26 Paxil - PO 10 mg HS ALMA DELIA Administration Multivit/Folic Acid/Iron 1 tab 03/14/17 10:00 04/08/17 09:48 Vitamins (Sjr) - PO 1 tab DAILY ALMA DELIA Administration Pseudoephedrine/Triprolidine 1 combo 03/13/17 13:08 04/05/17 21:37 Actifed - PO 1 combo TID PRN Administration NASAL CONGESTION Ranitidine HCl 150 mg 03/13/17 22:00 04/08/17 09:48 Zantac - PO 150 mg BID ALMA DELIA Administration Thiamine HCl 100 mg 03/13/17 22:00 04/07/17 21:26 Vitamin B1 - PO 100 mg HS ALMA DELIA Administration Current Side Effect: No Lab tests ordered: Yes Lab tests reviewed: Yes Provider note:: Patient will complete this program on 04/10/17. She has met her treatment goals and will continue to address her issues in outpatient treatment at [facility]. She responded well to Paxil 10 mg po HS. Script for 30 days supply of that medication will be electronically transmitted to [facility] at [address] [place] [address]. She is stable for discharge on 04/10/17 Total face to face time:: 35 Mental Status Exam - Mental Status Exam Alert and Oriented to: Time, Place, Person Cognitive Function: Fair Patient Appearance: Well Groomed Mood: Hopeful, Euthymic Affect: Appropriate Patient Behavior: Cooperative Speech Pattern: Clear Voice Loudness: Normal Thought Process: Intact, Goal Oriented Thought Disorder: Not Present Hallucinations: Denies Suicidal Ideation: Denies Homicidal Ideation: Denies Insight/Judgement: Fair Sleep: Fair Appetite: Good Muscle strength/Tone: Normal Gait/Station: Normal Psychiatric Treatment Plan - Problem List (1) Opioid dependence Current Visit: Yes (2) Substance induced mood disorder Current Visit: Yes (3) GERD (gastroesophageal reflux disease) Current Visit: Yes Qualifiers: Esophagitis presence: without esophagitis Qualified Code(s): K21.9 - Gastro -esophageal reflux disease without esophagitis (4) Gastric bypass status for obesity Current Visit: Yes (5) Hepatitis C Current Visit: Yes Qualifiers: Viral hepatitis chronicity: unspecified Hepatic coma status: without hepatic coma Qualified Code(s): B19.20 - Unspecified viral hepatitis C without hepatic coma Initial treatment plan: Patient will be discharged tomorrow and referred to [facility] for outpatient treatment
[2017-04-08] MEDS: PARoxetine HCL 10 MG TABLET (FP) PO SCH (21:15)
[2017-04-08] MEDS: THIAMINE HCL 100 MG TABLET (FP) PO SCH (21:15)
[2017-04-09] MEDS ORDERED: METHADONE HCL 10 MG TABLET ONE (03:38)
[2017-04-09] MEDS ORDERED: METHADONE HCL 5 MG TABLET ONE (03:38)
[2017-04-09] MEDS: METHADONE 30 MG, METHADONE 5 MG PO SCH (06:11)
[2017-04-09] MEDS: DOCUSATE SODIUM 100 MG CAPSULE (FP) PO PRN ×2 (09:52→21:21)
[2017-04-09] MEDS: RANITIDINE HCL 150 MG TABLET (FP) PO SCH ×2 (09:52→21:21)
[2017-04-09] MEDS: PRENATAL VITAMINS W/ FOLIC ACID TABLET (FP) PO SCH (09:52)
[2017-04-09] MEDS: HYDROCORTISONE 2.5% TOPICAL CREAM 30 GM TUBE TP SCH ×2 (09:53→22:45)
[2017-04-09] MEDS: MINERAL OIL/PETROLAT/WATER TOPICAL CREAM 454 GM JAR TP PRN (09:53)
[2017-04-09] MEDS ORDERED: PT OWN MED DRAWER 7, Y5N ONE (09:54)
[2017-04-09] MEDS: PARoxetine HCL 10 MG TABLET (FP) PO SCH (21:21)
[2017-04-09] MEDS: THIAMINE HCL 100 MG TABLET (FP) PO SCH (21:21)
[2017-04-10] MEDS ORDERED: METHADONE HCL 5 MG TABLET ONE (04:53)
[2017-04-10] MEDS ORDERED: METHADONE HCL 10 MG TABLET ONE (04:53)
[2017-04-10] MEDS ORDERED: METHADONE 30 MG, METHADONE 5 MG PO SCH (06:00)
[2017-04-10 07:33] VITALS: BP 139/81; PULSE 57; TEMP 95.7
[2017-04-10] MEDS ORDERED: PT OWN MED DRAWER 7, Y5N ONE (09:11)
[2017-04-10] MEDS: PRENATAL VITAMINS W/ FOLIC ACID TABLET (FP) PO SCH (09:12)
[2017-04-10] MEDS: RANITIDINE HCL 150 MG TABLET (FP) PO SCH (09:12)
[2017-04-10] MEDS: ACETAMINOPHEN 325 MG TABLET (FP) PO PRN (09:12)
[2017-04-10] MEDS: DOCUSATE SODIUM 100 MG CAPSULE (FP) PO PRN (09:12)
[2017-04-10] MEDS: MINERAL OIL/PETROLAT/WATER TOPICAL CREAM 454 GM JAR TP PRN (09:13)
[2017-04-10] MEDS: HYDROCORTISONE 2.5% TOPICAL CREAM 30 GM TUBE TP SCH (09:13)
== END 2017-04-10 09:50 | disposition home or self-care (01) | DRG 895 ==
LOC: YASAS 10:52 → Y3E 14:48 → Y3W 18:29
PROVIDERS: ADMIT Psychiatry & Neurology Psychiatry; ATTEND Psychiatry & Neurology Psychiatry
PROC: HZ42ZZZ Group Counseling for Substance Abuse Treatment, Cognitive-Behavioral (ICD-10-PCS; principal; 2017-03-13)
DX: F19.20 Other psychoactive substance dependence, uncomplicated (principal); F11.20 Opioid dependence, uncomplicated; F19.24 Other psychoactive substance dependence with psychoactive substance-induced mood disorder; K21.9 Gastro-esophageal reflux disease without esophagitis; B19.20 Unspecified viral hepatitis C without hepatic coma; L29.8 Other pruritus; R21 Rash and other nonspecific skin eruption; K59.00 Constipation, unspecified; Z98.84 Bariatric surgery status
CPT/HCPCS: 36415; 80053; 81003; 81015; 82962; 85027; 86593; 93005; 93010

== ENCOUNTER 2017-07-19 09:04 | Inpatient (IN) | payer OTHER ==
[2017-07-19 09:30] VITALS: BMI 21.7
--- NOTE | 2017-07-19 11:35 | HP ---
Admission [facility] Chief Complaint: Presents for opiod dependence and rehab services. Allergies/Adverse Reactions: Allergies Allergy/AdvReac Type Severity Reaction Status Date / Time Penicillins Allergy Severe Hives Verified 07/19/17 11:01 History of Present Illness: Patient presents for rehab services for Opiod dependence. Patient was recently incarcerated x 3 weeks. Was on MMTP and was not given MTD while in care home. Treated for ETOH withdrawal with Librium but patient states she told MD in care home she was an alcoholic to get medication as she was not getting MTD. Patient released and relapse x one last night. Used 1/2 bag of heroin. States she first used heroin in 1969 and then began taking MTD in 1970. Patient reports having years of sobriety and only sniffed heroin if it was available. Reports having one withdrawal seizure in 2014. Has hx of GERD and Depression/ anxiety. Granddaughter last week. Patient very saddened by her . Denies SI/HI today. No reports of suicide attemtps. - Ebola screening Have you traveled outside of the country in the last 21 days: No (N) Have you had contact with anyone from an Ebola affected area: No Have you been sick,other than usual withdrawal symptoms: No Do you have a fever: No - Review of Systems Constitutional: Changes in sleep, Unintentional Wgt. Loss EENT: reports: No Symptoms Reported Respiratory: reports: No Symptoms reported Cardiac: reports: No Symptoms Reported GI: reports: Indigestion : reports: No Symptoms Reported Musculoskeletal: reports: Back Pain, Muscle Pain Integumentary: reports: No Symptoms Reported Neuro: reports: No Symptoms reported Endocrine: reports: Unexplained Weight Loss Hematology: reports: No Symptoms Reported Psychiatric: reports: Orientated x3, Anxious, Depressed Patient History - Patient Medical History Hx Anemia: No Hx Asthma: No Hx Chronic Obstructive Pulmonary Disease (COPD): No Hx Cancer: No Hx Cardiac Disorders: No Hx Congestive Heart Failure: No Hx Hypertension: No Hx Hypercholesterolemia: No Hx Pacemaker: No HX Cerebrovascular Accident: No Hx Seizures: Yes (01/2015 secondary to withdrawal) Hx Dementia: No Hx Diabetes: No Hx Gastrointestinal Disorders: Yes (GI ulcer) Hx Liver Disease: No Hx Genitourinary Disorders: No Hx Sexually Transmitted Disorders: No Hx Renal Disease (ESRD): No Hx Thyroid Disease: No Hx Human Immunodeficiency Virus (HIV): No Hx Hepatitis C: Yes ([place]) Hx Depression: Yes Hx Suicide Attempt: No (Denies SI/HI and suicide attempts) Hx Bipolar Disorder: No Hx Schizophrenia: No - Patient Surgical History Past Surgical History: Yes Hx Neurologic Surgery: No Hx Cataract Extraction: No Hx Cardiac Surgery: No Hx Lung Surgery: No Hx Breast Surgery: No Hx Breast Biopsy: No Hx Abdominal Surgery: Yes (gastric bypass 1991) Hx Appendectomy: No Hx Cholecystectomy: No Hx Genitourinary Surgery: No Hx Section: No Hx Orthopedic Surgery: Yes (right [id number]) Hx Hysterectomy: No Other Surgical History: carpal tunner both wrists 2001 Anesthesia Reaction: No - PPD History Previous Implant?: Yes Documented Results: Negative w/proof Implanted On Prior [facility] Admission?: No PPD to be Administered?: No - Reproductive History Last Menstrual Period: 03/13/01 Patient : No - Smoking Cessation Smoking history: Never smoked Have you smoked in the past 12 months: No Hx Chewing Tobacco Use: No - Substance & Tx. History Hx Alcohol Use: No Hx Substance Use: Yes Substance Use Type: Heroin Hx Substance Use Treatment: Yes - Substances Abused Heroin Route: Inhalation Frequency: Daily Amount used: 1 bag Age of first use: 19 Date of Last Use: 07/18/17 Family Disease History - Family Disease History Family Disease History: CA: Mother (), Respiratory: Father (), Brother, Other: Father, Mother Admission Physical Exam B[facility] - Vital Signs Vital Signs: Vital Signs - 24 hr 07/19/17 09:25 Temperature 98.5 F Pulse Rate 115 H Respiratory 20 Rate Blood Pressure 99/79 - Physical General Appearance: Yes: Appropriately Dressed, Thin, Anxious HEENTM: Yes: EOMI, Hearing grossly Normal, Normal ENT Inspection, Normocephalic , Normal Voice, WAQAS, Pharynx Normal Respiratory: Yes: Chest Non-Tender, Lungs Clear, Normal Breath Sounds, No Respiratory Distress, No Accessory Muscle Use Neck: Yes: No masses,lesions,Nodules, Supple, Trachea in good position Breast: Yes: Breast Exam Deferred Cardiology: Yes: Regular Rhythm, Regular Rate, S1, S2 Abdominal: Yes: Normal Bowel Sounds, Non Tender, Soft Genitourinary: Yes: Within Normal Limits Musculoskeletal: Yes: Back pain, Muscle Pain Extremities: Yes: Normal Inspection, Normal Range of Motion, Non-Tender Neurological: Yes: 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, Fully Oriented, Alert, Motor Strength 5/5, Normal Response, Depressed Affect Integumentary: Yes: Normal Color, Dry, Warm Lymphatic: Yes: Within Normal Limits - Diagnostic (1) Opioid dependence Current Visit: Yes Status: Chronic Qualifiers: Substance use status: uncomplicated Qualified Code(s): F11.20 - Opioid dependence, uncomplicated (2) Depressed affect Current Visit: Yes Status: Acute (3) Anxiety Current Visit: Yes Status: Acute (4) GERD (gastroesophageal reflux disease) Current Visit: No Status: Chronic Qualifiers: Esophagitis presence: without esophagitis (5) Hepatitis C Current Visit: No Status: Chronic Qualifiers: Viral hepatitis chronicity: chronic Hepatic coma status: without hepatic coma Qualified Code(s): B18.2 - Chronic viral hepatitis C Cleared for Admission [facility] - Detox or Rehab Claeared for Rehab Admission: Yes S Breath Alcohol Content Breath Alcohol Content: 0 Urine Pregancy Test - Result Urine Test Results: Negative- NO Line Present Urine Drug Screen - Results Drug Screen Negative: No Urine Drug Screen Results: OPI-Opiates, BZO-Benzodiazepines, MTD-Methadone, OXY- Oxycodone Inpatient Rehab Admission - Initial Determination Are CD services needed?: Yes Free of communicable disease: Yes Not in need of hospitalization: Yes - Rehab Admission Criteria Previous failed treatment: Yes Poor recovery environment: Yes Comorbidities: Yes Lacks judgement: Yes Patient is meeting Inpatient Rehab admission criteria:: Yes
[2017-07-19] MEDS ORDERED: guaiFENesin/D-METHORPHAN HB 10 ML UNIT-DOSE CUPS PO PRN (11:44)
[2017-07-19] MEDS ORDERED: LOPERAMIDE HCL 2 MG CAPSULE PO PRN (11:44)
[2017-07-19] MEDS ORDERED: P-EPHED 60MG/TRIPROLIDI 2.5MG TABLET PO PRN (11:44)
[2017-07-19] MEDS ORDERED: ACETAMINOPHEN 325 MG TABLET (FP) PO PRN (11:44)
[2017-07-19] MEDS ORDERED: MAGNESIUM HYDROX 2400MG/30ML ORAL SUSPENSION 30 ML CUP PO PRN (11:44)
[2017-07-19] MEDS ORDERED: hydrOXYzine PAMOATE 50 MG CAPSULE (FP) PO PRN (11:44)
[2017-07-19] MEDS ORDERED: MAGNESIUM CITRATE 300 ML BOTTLE PO PRN (11:44)
[2017-07-19] MEDS ORDERED: MAG HYDROX/AL HYDROX/SIMETH 30 ML UNIT-DOSE CUP PO PRN (11:44)
[2017-07-19] MEDS ORDERED: MENTHOL/PHENOL 1 EACH UD MM PRN (11:44)
[2017-07-19] MEDS ORDERED: IBUPROFEN 400 MG TABLET (FP) PO PRN (11:44)
--- NOTE | 2017-07-19 14:38 | HP ---
Psychiatrist Admission - Data Date of interview: 07/19/17 Admission source: [facility] Identifying data: This is the second admission tot [address] [place] [address] for this 67 years old female mother of 3, resides with ,supported by [facility]. Medical History: Significant for H/O Bypass surgery,Hep C,GERD. Psychiatric History: Patient reports episodes of depressed mood,anxiety on and off for a few years.She is on Paxil 20 mg po daily prescribed by her PCP. Physical/Sexual Abuse/Trauma History: patient is not willing to discuss these issues at present. Vital Signs: Vital Signs - 24 hr 07/19/17 07/19/17 09:25 13:49 Temperature 98.5 F 98.4 F Pulse Rate 115 H 83 Respiratory 20 17 Rate Blood Pressure 99/79 108/76 Allergies/Adverse Reactions: Allergies Allergy/AdvReac Type Severity Reaction Status Date / Time Penicillins Allergy Severe Hives Verified 07/19/17 11:01 Date of last physical exam: 07/19/17 Concur with the findings of this exam: Yes - Substance Abuse/Tx History Hx Alcohol Use: Yes (socially) Hx Substance Use: Yes (reports sniffing heroin since 19 yo,5 bags daily) Substance Use Type: Opiates Hx Substance Use Treatment: Yes (completed this program) Mental Status Exam - Mental Status Exam Alert and Oriented to: Time, Place, Person Cognitive Function: Grossly Intact Patient Appearance: Well Groomed Mood: Sad Affect: Labile Patient Behavior: Cooperative Speech Pattern: Clear Voice Loudness: Normal Thought Process: Goal Oriented Thought Disorder: Not Present Hallucinations: Denies Suicidal Ideation: Denies Homicidal Ideation: Denies Insight/Judgement: Fair Sleep: Fair Appetite: Fair Muscle strength/Tone: Normal Gait/Station: Normal Psychiatric Findings - Problem List ([place] 1, 2,3) (1) GERD (gastroesophageal reflux disease) Status: Chronic Qualifiers: Esophagitis presence: without esophagitis Qualified Code(s): K21.9 - Gastro -esophageal reflux disease without esophagitis (2) Hepatitis C Status: Chronic Qualifiers: Viral hepatitis chronicity: chronic Hepatic coma status: without hepatic coma Qualified Code(s): B18.2 - Chronic viral hepatitis C (3) Methadone maintenance therapy patient Status: Chronic (4) Opioid dependence Status: Chronic Qualifiers: Substance use status: uncomplicated Qualified Code(s): F11.20 - Opioid dependence, uncomplicated (5) Gastric bypass status for obesity Status: Resolved (6) Substance induced mood disorder Status: Chronic - Initial Treatment Plan Initial Treatment Plan: Continue Paxil 20 mg po daily,add Benadryl 50 mg po hs prn for insomnia. Will monitor progress.
[2017-07-19] MEDS ORDERED: diphenhydrAMINE HCL 50 MG CAPSULE PO PRN (16:11)
[2017-07-19] MEDS ORDERED: PARoxetine HCL 20 MG TABLET (FP) PO SCH (22:00)
[2017-07-19] MEDS ORDERED: MELATONIN 5 MG TABLETS PO PRN (22:00)
[2017-07-19] MEDS ORDERED: THIAMINE HCL 100 MG TABLET (FP) PO SCH (22:00)
[2017-07-20 07:07] VITALS: BP 126/82; PULSE 91; TEMP 97.9
[2017-07-20] MEDS ORDERED: PRENATAL VITAMINS W/ FOLIC ACID TABLET (FP) PO SCH (10:00)
[2017-07-20] MEDS ORDERED: PANTOPRAZOLE 40 MG TABLET (FP) PO SCH (10:00)
[2017-07-20 10:51] LABS: HEMATOCRIT 33.4 % (32.4-45.2); HEMOGLOBIN 11.2 GM/dL (10.7-15.3); MCH 27.8 pg (25.7-33.7); MCHC 33.4 g/dl (32.0-36.0); MEAN CELL VOLUME 83.3 fl (80-96); MEAN PLT VOLUME 10.2 fl (7.5-11.1); PLATELET COUNT 218 K/MM3 (134-434); RBC 4.02 M/mm3 (3.60-5.2); RDW 16.1 % (11.6-15.6); WHITE BLOOD COUNT 7.4 K/mm3 (4.0-10.0)
[2017-07-20 11:08] LABS: ALBUMIN 3.2 g/dl (3.4-5.0); ANION GAP 9 (8-16); BLOOD UREA NITROGEN 30 mg/dL (7-18); CHLORIDE 101 mmol/L (98-107); CO2 28 mmol/L (21-32); CREATININE 1.4 mg/dL (0.55-1.02); GLUCOSE,RANDOM 94 mg/dL (74-106); POTASSIUM 3.4 mmol/L (3.5-5.1); SGPT/ALT 34 U/L (12-78); SODIUM 138 mmol/L (136-145)
[2017-07-20 11:11] LABS: TOT PROT 6.2 g/dl (6.4-8.2)
[2017-07-20 11:29] LABS: ALK PHOS 65 U/L (45-117); BILIRUBIN,TOTAL 0.7 mg/dL (0.2-1.0); SGOT/AST 101 U/L (15-37)
[2017-07-20 12:28] LABS: URINE APPEARANCE TURBID; URINE BILIRUBIN NEGATIVE (<2.0 mg/dL); URINE BLOOD 1+ (NEGATIVE); URINE COLOR AMBER; URINE GLUCOSE (UA) NEGATIVE (NEGATIVE); URINE KETONE TRACE (NEGATIVE); URINE NITRITE NEGATIVE (NEGATIVE)
[2017-07-20 12:30] LABS: URINE LEUK ESTERASE 2+ (NEGATIVE); URINE PROTEIN 2+ (NEGATIVE)
[2017-07-20 12:34] LABS: CALCIUM OXALATE CRYSTALS MODERATE /hpf (NONE SEEN); EPI CELLS MANY /HPF (FEW); URINE BACTERIA RARE /hpf (NONE SEEN); URINE HYALINE CAST 12 /lpf; URINE MUCUS MANY
--- NOTE | 2017-07-20 14:51 | EKG ---
Test Reason : Blood Pressure : / mmHG Vent. Rate : 091 BPM Atrial Rate : 091 BPM P-R Int : 106 ms QRS Dur : 080 ms QT Int : 356 ms P-R-T Axes : 040 032 070 degrees QTc Int : 437 ms SINUS RHYTHM WITH SHORT ID OTHERWISE NORMAL ECG WHEN COMPARED WITH ECG OF 13-MAR-2017 21:13, VENT. RATE HAS INCREASED BY 36 BPM Confirmed by MD Dionicio, Albert ([id number]) on 07/20/2017 2:51:03 PM Referred By: Confirmed By:Albert Greenberg MD
== END 2017-07-20 17:37 | disposition left against medical advice (07) | DRG 894 ==
LOC: YASAS 09:04 → Y3E 12:02
PROVIDERS: ADMIT Psychiatry & Neurology Psychiatry; ATTEND Psychiatry & Neurology Psychiatry
PROC: HZ42ZZZ Group Counseling for Substance Abuse Treatment, Cognitive-Behavioral (ICD-10-PCS; principal; 2017-07-19)
DX: F19.20 Other psychoactive substance dependence, uncomplicated (principal); F11.20 Opioid dependence, uncomplicated; F32.9 Major depressive disorder, single episode, unspecified; F41.9 Anxiety disorder, unspecified; K21.9 Gastro-esophageal reflux disease without esophagitis; B18.2 Chronic viral hepatitis C; Z98.84 Bariatric surgery status; Z88.0 Allergy status to penicillin; Z86.69 Personal history of other diseases of the nervous system and sense organs
CPT/HCPCS: 36415; 80053; 81003; 81015; 85027; 86593; 93005; 93010